=== PATIENT | female | born 1945 | race Asian ===

== ENCOUNTER 2020-07-17 22:14 | Emergency (ER) | payer MEDICARE, OTHER ==
[~2020-07-17] VITALS: Ht 154.9 cm; Wt 49.9 kg
[2020-07-18 01:56] LABS: Basophils # (auto) 0 10 ^3/uL (0-0.2); Basophils % (auto) 0.2 % (0.0-2.0); Eosinophils # (auto) 0 10 ^3/uL (0-0.8); Hematocrit 39.8 % (36.0-46.0); Hemoglobin 13.7 g/dL (12.2-16.2); Lymphocytes # (auto) 1.2 10 ^3/uL (0.4-5.4); Lymphocytes % (auto) 13.3 % (10.0-50.0); Mean Corpuscular Hemoglobin 31.2 pg (28.0-32.0); Mean Corpuscular Hgb Conc. 34.3 g/dL (32.0-36.0); Mean Corpuscular Volume 90.9 fL (80.0-100.0); Monocytes # (auto) 0.2 10 ^3/uL (0-1.3); Monocytes % (auto) 2.3 % (0.0-12.0); Neutrophils # (auto) 7.8 10 ^3/uL (1.6-8.6); Neutrophils % (auto) 84.2 % (37.0-80.0); Platelet Count (auto) 204 10^3/uL (140-450); Red Blood Cells 4.38 10^6/uL (4.0-5.20); Red Cell Distribution Width 13.9 % (11.8-14.3); White Blood Cell 9.2 10^3/uL (4.4-10.8)
[2020-07-18 02:10] LABS: INR 0.99 (0.9-1.15); Partial Thromboplastin Time 24.4 sec (23.0-31.2)
[2020-07-18 02:13] LABS: Urine Bacteria FEW /hpf (None Seen); Urine Blood Negative /uL (Negative); Urine Mucus FEW (None Seen); Urine Specific Gravity 1.017 (1.001-1.035); Urine WBC 1 /hpf (0 - 5)
[2020-07-18] MEDS ORDERED: fentaNYL Drip 2500mCg/250mlNS 250 ML IV SCH (06:10)
[2020-07-18 07:09] LABS: Albumin 3.8 g/dL (3.4-5.0); BUN/Creatinine Ratio 14.6; Magnesium 2.1 mg/dL (1.6-2.6); Potassium 3.9 mmol/L (3.5-5.1)
[2020-07-18 07:14] LABS: Bilirubin, Total 1.1 mg/dL (0.2-1.0); Total Protein 7.2 g/dL (6.4-8.2)
[2020-07-18] MEDS ORDERED: IOHEXOL 350 MG/ML 100ML IJ ONE (08:29)
[2020-07-18 15:47] VITALS: BP 143/74
== END 2020-07-18 15:49 | disposition home or self-care (01) ==
LOC: EDBD 22:14 → ER 22:14
DX: R07.89 Other chest pain (principal); E04.1 Nontoxic single thyroid nodule; E11.9 Type 2 diabetes mellitus without complications; I10 Essential (primary) hypertension; D73.4 Cyst of spleen
CPT/HCPCS: 36415; 71045; 71275; 76536; 80053; 81001; 83735; 83880; 84443; 84484; 85025; 85379; 85610; 85730; 99285; Q9967